=== PATIENT | female | born 1990 | race Caucasian/White ===

== ENCOUNTER 2023-03-09 09:02 | Outpatient (CLI) | payer OTHER, SELFPAY | END 2023-03-09 09:03 | disposition home or self-care (01) | PROVIDERS: PCP Family Medicine; Visit Provider Family Medicine | DX: Z00.00 Encounter for general adult medical examination without abnormal findings (principal); E03.9 Hypothyroidism, unspecified; E66.9 Obesity, unspecified; R53.83 Other fatigue; F32.9 Major depressive disorder, single episode, unspecified; Z13.6 Encounter for screening for cardiovascular disorders | CPT/HCPCS: 80053; 80061; 82607; 84439; 84443 ==

== ENCOUNTER 2023-06-14 11:49 | Outpatient (CLI) | payer OTHER, SELFPAY | END 2023-06-14 11:50 | disposition home or self-care (01) | LOC: NFLDREF 06-16 09:27 | PROVIDERS: PCP Family Medicine; Referring Provider Family Medicine; Visit Provider Family Medicine | DX: E03.9 Hypothyroidism, unspecified (principal); F32.9 Major depressive disorder, single episode, unspecified; F41.9 Anxiety disorder, unspecified; F33.1 Major depressive disorder, recurrent, moderate | CPT/HCPCS: 84443 ==

== ENCOUNTER 2025-01-27 09:15 | Emergency (ER) | payer OTHER, SELFPAY ==
--- OUTSIDE RECORDS SUMMARY | 2025-01-27 09:17 | XMS_ITS | Clinical Summary ---
Author Organization [place] [email or web address] [facility] Address [address] [place] [address] Care Team Providers Care Manager Loan Name Role Phone Diann Lopez Primary Care Provider [phone] Miya Contreras Unavailable [phone] Willy Rogel MD Unavailable Abigail Garcia RN Unavailable [phone] Allergies Active Allergy Reactions Criticality Noted Date Comments Nsaids (Non-Steroidal Anti-Inflammatory Drug) Other - Describe In Comment Field 01/14/2025 H/o bari-n-y gastric bypass. AVOID NSAIDs and aspirin due to risk of gastric and/or G-J anastomotic ulcers. If Venessa must be on short course of NSAIDs or aspirin, use enteric coated if possible and use PPI // Abigail Garcia RN, Bariatric Nurse Clinician, [facility] 01/14/2025 Penicillins 05/04/2007 Medications levothyroxine (SYNTHROID) 100 mcg tabletIndications :Hypothyroidism (acquired) Take 1 Tablet (100 mcg) by mouth before breakfast. 90 Tablet 2 09/19/19 25 Active escitalopram oxalate (LEXAPRO) 20 mg tabletIndications :Depression, recurrent Take 1 Tablet (20 mg) by mouth once daily in the morning. 90 Tablet 3 10/18/19 25 Active pedi multivit no.140-iron fum (Child Chewable Vitamn Complete) 18 mg iron chewIndications:S /P gastric bypass,Achlorhydr ia,Malabsorption due to intolerance, not elsewhere classified Chew by mouth. Acti ve mecobalamin (vitamin B12) 1,000 mcg TbDiIndications:S /P gastric bypass,Achlorhydr ia,Malabsorption due to intolerance, not elsewhere classified Place 1,000 mcg under the tongue once daily. 12/28/19 25 Active acetaminophen 500 mg tabletIndications :S/P gastric bypass Take 1-2 Tablets (500-1,000 mg) by mouth every 6 hours if needed for Pain. Max acetaminophen dose: 4000mg in 24 hrs. 30 Tablet 5 8:59 AM CDT 01/14/20 25 Active ondansetron 4 mg disintegrating tabletIndications :S/P gastric bypass Place 1 Tablet (4 mg) on the tongue every 6 hours if needed for Nausea/Vomiting. 30 Tablet 5 8:59 AM CDT 01/14/20 25 Active omeprazole 20 mg Delayed-Release capsuleIndication s:S/P gastric bypass Take 1 Capsule (20 mg) by mouth once daily before a meal. 60 Capsule 5 8:59 AM CDT 01/14/20 25 Active hyoscyamine sublingual 0.125 mg sublIndications:S /P gastric bypass Place 1 Tablet (0.125 mg) under the tongue every 4 hours if needed (for gastric or espheageal spasms.). 30 Tablet 5 8:59 AM CDT 01/14/20 25 Active enoxaparin 40 mg/0.4 mL injectionIndicati ons:Heterozygous factor V Leiden mutation (HC),S/P gastric bypass Inject 0.4 mL (40 mg) subcutaneous every 12 hours for 14 days. 11.2 mL 5 8:59 AM CDT 01/14/20 25 025 Active prochlorperazine (Compazine) 5 mg tabletIndications :S/P gastric bypass Take 1-2 Tablets (5-10 mg) by mouth every 6 hours if needed for Nausea/Vomiting. 30 Tablet 01/22/20 25 Active NebulizerIndicati ons:Bronchitis with bronchospasm Nebulizer, disposable neb kit x 4, reuseable neb kit x 1, mask x 1, filters x 1. Frequency of use: daily; Medication: albuterol Length of need: prn months 1 Each 06/29/20 23 025 Discontin ued(Other - add note to specify (E-cancel not sent)) calcium citrate-vitamin D3, 315 mg-250 units, (CITRACAL WITH VITAMIN D) 315 mg-6.25 mcg (250 unit) tab tabletIndications :Morbid obesity with BMI of 40.0-44.9, adult (HC) Take 2 Tablets by mouth two times daily with meals. Total daily dose of Calcium should be 1200mg - 1500mg 08/05/20 24 025 Discontin ued(*IP Discontin ued) multivitamin pediatric chewable tabletIndications :Morbid obesity with BMI of 40.0-44.9, adult (HC) Chew 1 Tablet by mouth once daily. 08/06/20 025 Discontin ued(*IP Discontin ued) cholecalciferol, Vitamin D3, (Vitamin D-3) 5,000 unit tab tabletIndications :Morbid obesity with BMI of 40.0-44.9, adult (HC) Take 1 Tablet (5,000 units) by mouth once daily. 08/06/20 025 Discontin ued(*IP Discontin ued) acetaminophen 500 mg tablet Take 1,000 mg by mouth every 6 hours if needed. 07/07/20 025 Discontin ued(*IP Discontin ued) calcium carbonate CHEWABLE 750 mg chewable tablet Chew 1 Tablet by mouth every 3 hours if needed. 025 Discontin ued(*IP Discontin ued) famotidine 20 mg tablet Take 20 mg by mouth 2 times daily if needed. 06/23/20 025 Discontin ued(Other - add note to specify (E-cancel not sent)) ibuprofen 200 mg tablet Take 600 mg by mouth every 6 hours if needed. 07/07/20 22 025 Discontin ued(*IP Discontin ued) vitamins-folic acid 1 mg tablet Take 1 Tablet by mouth once daily. 025 Discontin ued(Other - add note to specify (E-cancel not sent)) melatonin 10 mg cap Take 10 mg by mouth at bedtime if needed. 025 Discontin ued(*Blessing ent states no longer taking) HYDROmorphone 2 mg tabletIndications :S/P gastric bypass Take 1-2 Tablets (2-4 mg) by mouth every 4 hours if needed for Pain. 10 Tablet 5 8:59 AM CDT 01/14/20 25 025 Discontin ued(*Blessing ent states no longer taking) sennosides-docusa te (8.6-50 mg) tabletIndications :S/P gastric bypass Take 1 Tablet by mouth 2 times daily if needed for Constipation. Start day of discharge from hospital. 20 Tablet 5 8:59 AM CDT 01/14/20 25 025 Discontin ued(*Blessing ent states no longer taking) polyethylene glycoL 17 gram/scoop powderIndications :S/P gastric bypass Mix 1 scoop (17 g) in liquid then take by mouth once daily. 238 g 5 8:59 AM CDT 01/14/20 25 025 Discontin ued(*Blessing ent states no longer taking) Active Problems Patient Care Coordination No te Formatting of this note migh t be different from the original. SEE DOC FLOWSHEET-PIPELINE FOR NEW BARIATRIC COORDINATION NOTE. MARCUS RN Problem Noted Date Diagnosed Date S/P gastric bypass 01/13/2025 Overview (01/13/2025): Dr. Rogel Gastroesophageal reflux disease without esophagi tis 08/06/2024 Class 3 severe obesity with body mass index (BMI) of 40.0 to 44.9 in adult 07/19/2024 Hypothyroidism (acquired) 10/24/2023 Heterozygous factor V Leiden mutation 10/16/2023 Encounters Date Type Department Care Team Description 01/24/2025 [facility] [address] [place] [address] Lorene Melgar PA 01/15/2025 11:00 AM CDT Phone [facility] [address] [address] Karla Martins RN Weight (1st PO Bariatric RN call s/p ROBOTIC ASSISTED BARI-EN-Y GASTRIC BYPASS with Willy Rogel MD on 01/13/2025./); Telehealth (No vitals taken.) 01/15/2025 Patient Outreach [facility] [address] [place] [address] Teresa Simon RN Primary RN Care Management; Hospital F/U (LACE 10) 01/13/2025 9:55 AM CDT Anesthesia Event [facility] [address] [place] [address] Zeferino Ness MD 01/13/2025 8:30 AM CDT - 01/13/2025 11:11 AM CDT Surgery [facility] [address], [place] [address] Willy Rogel MD ROBOTIC ASSISTED BARI-EN-Y GASTRIC BYPASS 01/13/2025 6:28 AM CDT - 01/14/2025 12:39 PM CDT Hospital Encounter [facility] [address] [place] [address] Willy Rogel MD Class 3 severe obesity with body mass index (BMI) of 40.0 to 44.9 in adult (Primary Dx); Gastroesophageal reflux disease without esophagitis; Hypothyroidism (acquired); Heterozygous factor V Leiden mutation (HC); S/P gastric bypass Discharge Disposition: Home Self Care 01/13/2025 Travel 01/10/2025 Travel 01/02/2025 10:00 AM CDT [place] [facility] [address] [place] [address] Weight; Care Coordination (BNC Pre Op Education Class via [employer]/) 01/01/2025 Travel 12/31/2024 11:10 AM CDT Office Visit [facility] [address] [place] [address] Diann Lopez PA Preoperative Exam (Bariatric Procedure, 01/13/25, Megan Rogel ) 12/31/2024 Travel 12/26/2024 3:15 PM CDT Telemedicine [facility] - [facility] [address] [place] [address] Willy Rogel MD Telehealth (Today's visit is virtual, no vital signs obtained. ); Follow Up (L final clearance ) 12/09/2024 Orders Only [facility] - [facility] [address] [place] [address] Willy Rogel MD <No scans attached> 12/06/2024 Office Visit [facility] [address] [place] [address] Eric Long PsyD, LP Psychological Testing 12/03/2024 8:00 AM CDT Telemedicine [facility] [address] [place] [address] Eric Long PsyD, LP Individual Therapy; Telehealth 12/03/2024 Travel 12/02/2024 12:30 PM CDT Telemedicine [address] [address] Miya Contreras PA Telehealth (No vitals taken); Weight (f/u wt) 11/29/2024 1:00 PM CDT Telemedicine [address] [address] Medical Nutrition Therapy (SWL.4) 11/01/2024 12:30 PM [facility] Telemedicine [address] [address] from Last 3 Months Immunizations Immunization Administration Dates Next Due COVID-19 VACCINE SPIKEVAX (M ODERNA 50MCG/0.5ML) 12YO+ PFS 07/10/2023 COVID-19 vaccine (Moderna 100mcg/0.5mL) PF, MDV 12/30/2020,12/01/2020 COVID-19 vaccine (Moderna 50mcg/0.5mL) 12YO+ BIVALENT PF, MDV 06/29/2022 COVID-19 vaccine (Moderna Genaro erin 50mcg/0.25mL) PF, MDV 08/03/2021 INFLUENZA, IIV3 PF (AGE >= 6 MO) 06/07/2024 Influenza Virus, Unspecified 06/01/2017 Influenza, IIV4 07/10/2023, 2,07/09/2021,2018,06/23/2018,06/01/2017 Tdap 04/20/2022, 1,06/01/2017,2015,10/30/2013 Family History Medical History Relation Name Comments Alcoholism Father Depression Father Hypertension Father Coronary artery disease Maternal Grandfather Hyperlipidemia Maternal Grandfather Cancer-breast Maternal Grandmother Anxiety disorder Mother Clotting disorder Mother Depression Mother Other Mother PCOS COPD Paternal Grandfather Arthritis Paternal Grandmother Other Sister PCOS Relation Name Status Comments Father Maternal Grandfather Maternal Grandmother Mother Paternal Grandfather Paternal Grandmother Sister Social History Tobacco Use Types Packs/Day Years Used Date Smoking Tobacco: Never Smokeless Tobacco: Never Tobacco Cessation:Counseling Given: Not Answered Alcohol Use Standard Drinks/Week Comments Not Currently 0 (1 standard drink = 0.6 oz pur e alcohol) rarely PHQ-2 Answer Date Recorded PHQ-2 TOTAL SCORE 0 08/07/2024 Social Connections Answer Date Recorded Do you often feel lonely or isolated from those around you? 0 01/14/2025 Financial Resource Strain Answer Date R ecorded Difficulty of Paying Living Expenses 3 06/07/2024 Difficulty of Paying Living Expenses Not on file 06/07/2024 Food Insecurity Answer Date Recorded Do you worry your food will run out before you are able to buy more? 1 01/14/2025 Transportation Needs Answer Date Record ed Does lack of transportation keep you from medica l appointments? 1 01/14/2025 Does lack of transportation keep you from work, meetings or getting things that you need? 1 01/14/2025 Housing Stability Answer Date Recorded What is your housing situation today? 1 01/14/2025 Interpersonal Safety Answer Date Record ed Are you being hit, kicked, p ushed or yelled at (see row info)? No 01/14/2025 Interpersonal Safety Abuse 12 - 18 Not on file 01/14/2025 Interpersonal Safety Ambulatory Vulnerability No t on file 01/14/2025 Utilities Answer Date Recorded Do you have trouble paying f or utilities (for example, heat, electricity, water, phone)? 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 Not on file Not on file Obstetrics History Para Term AB IAB SAB Ectopic Multiple Livin g Live Births 0 0 0 0 0 0 0 0 0 3 Last Filed Vital Signs Vital Sign Reading Time Taken Comments Blood Pressure 119/57 01/14/2025 8:00 AM CDT Pulse 60 01/14/2025 8:00 AM CDT Temperature 36.7 C (98 F) 01/14/2025 8:00 AM CDT Respiratory Rate 20 01/14/2025 8:00 AM CDT Oxygen Saturation 98% 01/14/2025 8:00 AM CDT Inhaled Oxygen Concentration - - Weight 110.7 kg (244 lb) 01/21/2025 12:00 PM CDT Height 167.6 cm (5' 5.98) 01/21/2025 12:00 PM C DT Body Mass Index 39.4 01/21/2025 12:00 PM CDT Plan of Treatment Upcoming Encounters Date Type Department Care Team (Late st Contact Info) Description 02/04/2025 1:00 PM CDT Telemedicine [facility] [address] [place] [address] Claritza Lafleur, DEREK [address] [place] [address] 02/17/2025 1:00 PM CDT Phone Office Visit [facility] - [facility] [address] [address] Abigail Garcia RN [address] [address] Health Maintenance Due Date Last Done Comments COVID-19 vaccine series ( season) 2024 07/10/2023, 06/29/2022, 08/03/2021, Additional history exists Pap test for age 21-65 09/25/2024 (Verified in Care Everywhere or Patient Record), 09/27/2013, 09/02/2009 Depression screening for age 12+ 08/08/2025 08/08/2024, 08/07/2024, 08/07/2024, Additional history exists BMI (ht and wt on same day) for age 18+ 01/21/2026 01/21/2025, 01/15/2025, 12/26/2024, Additional history exists Tetanus booster 04/20/2032 04/20/2022, 05/20, 06/01/2017, Additional history exists Hepatitis C screening for age 18-79 Addressed 01/26/2021 (Verified in Care Everywhere or Patient Record) Overridden with the intention of not completing the topic HIV for age 15-65 Addressed 12/16/2021 (Ve rified in Care Everywhere or Patient Record) Overridden with the intention of not completing the topic Tdap Completed 04/20/2022, 05/20, 06/01/2017, Additional history exists Influenza Vaccine Completed 06/07/2024, , 06/23/2022, Additional history exists Pneumococcal series for age 6-49 Aged Out No longer eligible b ased on patient's age to complete this topic Procedures Procedure Name Priority Date/Time Associated Diagnosis Comments ENDOTRACHEAL TUBE Routine 01/13/2025 10: 25 AM CDT ENDOTRACHEAL TUBE Routine 01/13/2025 10: 25 AM CDT ROBOTIC ASSISTED GASTRIC BYPASS BARI-EN-Y XI Tier 3 01/13/2025 9:20 AM CDT Class 3 severe obesity with body mass index (BMI) of 40.0 to 44.9 in adult, unspecified obesity type, unspecified whether serious comorbidity present Hypothyroidism (acquired) Gastroesophageal reflux disease without esophagitis URINE Preop 01/13/2025 8:42 AM CDT GLUCOSE METER Timed 01/13/2025 8:14 AM CDT SCAN-CARDIAC STRIP 01/13/2025 12 :00 AM CDT VITAMIN D 25 (DEFICIENCY) Routine 12/31/2024 11:48 AM CDT Class 3 severe obesity with body mass index (BMI) of 40.0 to 44.9 in adult, unspecified obesity type, unspecified whether serious comorbidity present Hypothyroidism (acquired) Gastroesophageal reflux disease without esophagitis PTH,INTACT Routine 12/31/2024 11:48 AM CDT Class 3 severe obesity with body mass index (BMI) of 40.0 to 44.9 in adult, unspecified obesity type, unspecified whether serious comorbidity present Hypothyroidism (acquired) Gastroesophageal reflux disease without esophagitis HEMOGLOBIN Routine 12/31/2024 11:48 AM CDT Preoperative examination PULMONARY FUNCTION TECHNOLOGIST THIN PREP PAP SCREEN IMAGED Routine 09/27/2013 4:26 PM [facility] Screening for cervical cancer from Last 3 Months or Most Recently Relevant to Health Maintenance Results * HCHG TUBE PR1, HCHG STYLET PR1 (01/13/2025 10:25 AM CDT) Ada Bender CRNA - 01/13/2025 10:25 AM CDT Ada Bonilla, JONH 01/13/2025 10:26 AM Procedure: ETT Patient location during procedure: OR ETT Properties Mask Ventilation: easy and oral airway Final Technique: direct laryngoscopy Type: straight Location: oral Cuffed: yes Tube Size: 7.0 mm Stylet: yes Laryngoscope Blade: Mac Blade Size: 3 Cormack-Lehane Grade View: 1 Insertion Attempts: 1 Placement Verification: auscultation, end tidal CO2 and symmetrical chest wall movement Assessment: pharynx clear, atraumatic and dentition unchanged Secured at: 23 Difficulty: 0 (not difficult) us Zeferino Ness MD ANESTHESIA PX NOTE ORDERA BLES Final Result * Urine (01/13/2025 8:42 AM CDT) ,URIN E Negative Negative 01/13/2025 8:59 AM CDT [facility] Urine URINE SPECIMEN / Unknown Non-Blood / Unknown 01/13/2025 8:42 AM CDT 01/13/2025 8:52 AM CDT Willy Rogel MD URINE Final Result Performing Organization Address City/[facility]/ZIP Co de Phone Number [facility] [address] [address], [place] * GLUCOSE METER (01/13/2025 8:14 AM CDT) GLUCOSE METER 81 65 - 100 mg/dL 01/14/2025 7:01 AM CDT [facility] Blood BLOOD SPECIMEN / Unknown 01/13/2025 8:14 AM CDT 01/14/2025 7:01 AM CDT Willy Rogel MD CHEMISTRY Final Result Performing Organization Address City/[facility] Co de Phone Number [facility] [address] [address], [place] * SCAN-CARDIAC STRIP (01/13/2025 12:00 AM CDT) Narrative 01/13/2025 12:00 AM CDT Ordered by an unspecified provider. Other Clinical Staff OTHER Final Resul t * VITAMIN D 25 (DEFICIENCY) (12/31/2024 11:48 AM CDT) VITAMIN D,25-OH,TOTAL,IA 32 30 - 100 ng/mL [facility] Comment: Vitamin D Status 25-OH Vitamin D: Deficiency: <20 ng/mL Insufficiency: 20 - 29 ng/mL Optimal: > or = 30 ng/mL For 25-OH Vitamin D testing on patients on D2-supplementation and patients for whom quantitation of D2 and D3 fractions is required, the QuestAssureD(TM) 25-OH VIT D, (D2,D3), LC/MS/MS is recommended: order code 65271 (patients >2yrs). See Note 1 Note 1 For additional information, please refer to http://education.[employer]/faq/PSR104 (This link is being provided for informational/ educational purposes only.) Blood BLOOD SPECIMEN / Unknown 12/31/2024 11:48 AM CDT 12/31/2024 11:48 AM CDT Wlily Rogel MD SEND OUTS Final Result [facility] [address] [place] [address], [facility] [address] [place] [address] * HEMOGLOBIN (12/31/2024 11:48 AM CDT) HEMOGLOBIN 14.5 11.7 - 15.5 g/dL [facility] Blood BLOOD SPECIMEN / Unknown 12/31/2024 11:48 AM CDT 12/31/2024 11:48 AM CDT Diann MAI HEMATOLOGY Final Res ult [facility] [address] [place] [address], [facility] [address] [place] [address] * PTH,INTACT (12/31/2024 11:48 AM CDT) PARATHYROID HORMONE, INTACT 33 16 - 77 pg/mL [facility] Comment: Interpretive Guide Intact PTH Calcium ------- Normal Parathyroid Normal Normal Hypoparathyroidism Low or Low Normal Low Hyperparathyroidism Primary Normal or High High Secondary High Normal or Low Tertiary High High Non-Parathyroid Hypercalcemia Low or Low Normal High CALCIUM 10.0 8.6 - 10.2 mg/dL [facility] Blood BLOOD SPECIMEN / Unknown 12/31/2024 11:48 AM CDT 12/31/2024 11:48 AM CDT Willy Rogel MD SEND OUTS Final Result [facility] [address] [place] [address], [facility] [address] [place] [address] * PULMONARY FUNCTION TECHNOLOGIST THIN PREP PAP SCREEN IMAGED (09/27/2013 4:26 PM [facility]) CYTOLOGY CYTOPATHOLOGY REPORT [facility] Status: Final Status [id number] CLINICAL INFORMATION Last Date of LMP :08/07/2013 Last Pap Date :09/02/2009 Last Pap Result :NIL ABN [place]/Bx Past 5 YRS :None Hormone Usage :BCP/OCP/Patch/Rin g Menstrual Status :Regular Periods [place]/Bx done today :No Additional Information :None given HPV Request :HPV if ASCUS SPECIMEN SOURCE :Cervical/vaginal ThinPrep Vial, screening SPECIMEN ADEQUACY :Satisfactory for evaluation No endocervical component seen. INTERPRETATION/RES ULT Negative for intraepithelial lesion or malignancy (NIL) Cytology 1st Screener :[email or web address] Signed by :[email or web address] This specimen was screened by the FDA approved ThinPrep Imaging System and manually reviewed. NOTE: The Pap test is a screening technique, not a diagnostic procedure. It is used primarily to screen for squamous cancers and precursor lesions. Published studies have shown that it is subject to both false negative and false positive results. The pap test should not be used as the sole means to diagnose or exclude pre-malignant and malignant lesions. COLLECTED:09/27/13 ACCESSIONED: 09/29/13 SIGNED: 10/08/13 [facility] PAP [place] CODE NIL [facility] Tissue specimen (specimen) (Cervical/Vagina l) 09/27/2013 4:26 PM [facility] 09/27/2013 4:21 PM [facility] us Rachel MAI PATHOLOGY/CYTOLOGY Elena bishop Result [facility] INTERNAL ZIP [id number] [address] [place] [address] from Last 3 Months or Most Recently Relevant to Health Maintenance Insurance [facility] Advance Directives * Full Code (Latest Code Status on File) Date Activated Date Inactivated Comments 01/13/2025 7:27 AM 01/14/2025 2:49 PM Question Answer Comments Code Status Discussion: Not Discussed Care Teams Manager Loan Relationship Specialty Start Date End Date Diann Lopez PA [address] [place] [address] PCP - General Physician Pharm Spec 07/10/23 Miya Contreras PA [address] [place] [address] Physician Pharm Spec 07/16/24 Willy Rogel MD [address] [place] [address] Consulting Physician Surgery - General 08/06/24 Abigail Garcia RN [address] [place] [address] [employer] Splicer Registered Nurse 08/06/24
[2025-01-27 09:22] VITALS: BP 125/86; PULSE 69; RESP 16; TEMP 36.3; O2SAT 98; BMI 37.9
[2025-01-27] MEDS: LACTATED RINGERS 1000 ML 1,000 ML IV ×2 (09:48→10:49)
[2025-01-27 10:03] LABS: Basophils Absolute Auto 0.03 K/uL (0.00-0.30); Basophils Percent Auto 0.5 % (0.0-3.0); Eosinophils Absolute Auto 0.19 K/uL (0.00-0.50); Eosinophils Percent Auto 3.3 % (0.0-7.0); Hematocrit 41.9 % (33.0-51.0); Hemoglobin* 14.4 gm/dL (12.0-16.0); Immature Granulocytes Abs Auto 0.01 K/uL (0.00-0.30); Immature Granulocytes Pct Auto 0.2 %; Lymphocytes Absolute Auto 1.31 K/uL (0.90-2.90); Lymphocytes Percent Auto 22.5 % (20-44); Mean Corpuscular HGB Conc 34 gm/dL (32-36); Mean Corpuscular Hemoglobin 30 pg (26-34); Mean Corpuscular Volume 87 fL (80-100); Neutrophils Absolute Auto 3.69 K/uL (1.7-7.0); Neutrophils Percent Auto 63.5 % (42.0-72.0); Platelet Count* 319 K/uL (140-440); RDW Coefficient of Variation % 12.6 % (11.5-15.5); Red Blood Count 4.82 m/uL (4.00-5.20); White Blood Count* 5.81 K/uL (4.50-11.00)
[2025-01-27 10:05] LABS: Slide Review Reflex No
[2025-01-27 10:15] LABS: Chloride* 98 mmol/L (96-114); Sodium* 138 mmol/L (135-149)
[2025-01-27 10:18] LABS: Anion Gap 13 mEq/L (7-15); Blood Urea Nitrogen* 10 mg/dL (5-24); Calcium* 9.3 mg/dL (8.4-10.6); Carbon Dioxide* 27 mmol/L (20-32); Creatinine* 0.7 mg/dL (0.5-1.5); Est. Creatinine Clearance* 108.04; Estimated Glomerular Filt Rate 115 ml/min; Glucose* 100 mg/dL (60-115)
[2025-01-27 10:19] LABS: Magnesium* 1.7 mg/dL (1.5-2.6)
--- OUTSIDE RECORDS SUMMARY | 2025-01-27 10:25 | XMS_ITS | Clinical Summary ---
Author Organization [facility]ly [facility] Address [address] [place] [id number] Care Team Providers Care Electronic Systems Security Assessment Name Role Phone Diann Lopez Primary Care Provider [phone] Miya Contreras Unavailable [phone] Willy Rogel MD Unavailable Abigail Garcia RN Unavailable [phone] Allergies Active Allergy Reactions Criticality Noted Date Comments Nsaids (Non-Steroidal Anti-Inflammatory Drug) Other - Describe In Comment Field 01/14/2025 H/o bari-n-y gastric bypass. AVOID NSAIDs and aspirin due to risk of gastric and/or G-J anastomotic ulcers. If Venessa must be on short course of NSAIDs or aspirin, use enteric coated if possible and use PPI // Abigail Garcia RN, Bariatric Nurse Clinician, [facility] 01/14/2025 Penicillins 05/04/2007 Medications levothyroxine [...] Type Department Care Team Description [facility] [address] [place] [address] Lorene Melgar PA 01/15/2025 11:00 AM CDT Phone [facility] [address] [address] Karla Martins RN Weight (1st PO Bariatric RN call s/p ROBOTIC ASSISTED BARI-EN-Y GASTRIC BYPASS with Willy Rogel MD on 01/13/2025./); Telehealth (No vitals taken.) 01/15/2025 Patient Outreach [facility] [address] [place] [address] Teresa Simon RN Primary RN Care Management; Hospital F/U (LACE 10) 01/13/2025 9:55 AM CDT Anesthesia Event [facility] [address] [place] [address] Zeferino Ness MD 01/13/2025 8:30 AM CDT - 01/13/2025 11:11 AM CDT Surgery [facility] [address], [place] [address] Willy Rogel MD ROBOTIC ASSISTED BARI-EN-Y GASTRIC BYPASS 01/13/2025 6:28 AM CDT - 01/14/2025 12:39 PM CDT Hospital Encounter [facility] [address] [place] [address] Willy Rogel MD Class 3 severe obesity with body mass index (BMI) of 40.0 to 44.9 in adult (Primary Dx); Gastroesophageal reflux disease without esophagitis; Hypothyroidism (acquired); Heterozygous factor V Leiden mutation (HC); S/P gastric bypass Discharge Disposition: Home Self Care 01/13/2025 Travel 01/10/2025 Travel 01/02/2025 10:00 AM CDT Office [place] [facility] [address] [place] [address] Weight; Care Coordination (BNC Pre Op Education Class via [employer]/) 01/01/2025 Travel 12/31/2024 11:10 AM CDT Office Visit [facility] [address] [place] [address] Diann Lopez PA Preoperative Exam (Bariatric Procedure, 01/13/25, Megan Rogel ) 12/31/2024 Travel 12/26/2024 3:15 PM CDT Telemedicine [facility] - [facility] [address] [place] [address] Willy Rogel MD Telehealth (Today's visit is virtual, no vital signs obtained. ); Follow Up (L final clearance ) 12/09/2024 Orders Only [facility] - [facility] [address] [place] [address] Willy Rogel MD <No scans attached> 12/06/2024 Office Visit [facility] [address] [place] [address] Eric Long PsyD, LP Psychological Testing 12/03/2024 8:00 AM CDT Telemedicine [facility] [address] [place] [address] Eric Long PsyD, LP Individual Therapy; Telehealth 12/03/2024 Travel 12/02/2024 12:30 PM CDT Telemedicine [address] [address] Miya Contreras PA Telehealth (No vitals taken); Weight (f/u wt) 11/29/2024 1:00 PM CDT Telemedicine [address] [address] Medical Nutrition Therapy (SWL.4) 11/01/2024 12:30 PM CSM CONSULTANT Telemedicine [address] [address] from Last 3 Months [...] on file Legal Sex Female 6:29 AM CSM CONSULTANT Gender Identity Not on file Sexual Orientation Not on file 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 Not on file Not [...] Info) Description 02/04/2025 1:00 PM CDT Telemedicine [facility] [address] [place] [address] Claritza Lafleur, DEREK [address] [place] [address] 02/17/2025 1:00 PM CDT Phone Office Visit [facility] - [facility] [address] [address] Abigail Garcia RN [address] [address] Health Maintenance Due Date Last Done Comments [...] Routine 12/31/2024 11:48 AM CDT Preoperative examination INSURANCE SALES ASSOCIATE THIN PREP PAP SCREEN IMAGED Routine 09/27/2013 4:26 PM CSM CONSULTANT Screening for cervical cancer from Last 3 [...] E Negative Negative 01/13/2025 8:59 AM CDT [facility] Urine URINE SPECIMEN / Unknown Non-Blood / Unknown 01/13/2025 8:42 AM CDT 01/13/2025 8:52 AM CDT Willy Rogel MD URINE Final Result Performing Organization Address City/[facility]/ZIP Co de Phone Number [facility] [address] [address], [place] * GLUCOSE METER (01/13/2025 8:14 AM CDT) GLUCOSE METER 81 65 - 100 mg/dL 01/14/2025 7:01 AM CDT [facility] Blood BLOOD SPECIMEN / Unknown 01/13/2025 8:14 AM CDT 01/14/2025 7:01 AM CDT Willy Rogel MD CHEMISTRY Final Result Performing Organization Address City/[facility] Co de Phone Number [facility] [address] [address], [place] * SCAN-CARDIAC STRIP (01/13/2025 12:00 AM CDT) Narrative 01/13/2025 12:00 AM CDT Ordered by an unspecified provider. Other Clinical Staff OTHER Final Resul t * VITAMIN D 25 (DEFICIENCY) (12/31/2024 11:48 AM CDT) VITAMIN D,25-OH,TOTAL,IA 32 30 - 100 ng/mL [employer] Comment: Vitamin D Status 25-OH Vitamin D: Deficiency: <20 ng/mL Insufficiency: 20 - 29 ng/mL Optimal: > or = 30 ng/mL For 25-OH Vitamin D testing on patients on D2-supplementation and patients for whom quantitation of D2 and D3 fractions is required, the QuestAssureD(TM) 25-OH VIT D, (D2,D3), LC/MS/MS is recommended: order code 15924 (patients >2yrs). See Note 1 Note 1 For additional information, please refer to http://education.[employer]/faq/KOJ883 (This link is being provided for informational/ educational purposes only.) Blood BLOOD SPECIMEN / Unknown 12/31/2024 11:48 AM CDT 12/31/2024 11:48 AM CDT Willy Rogel MD SEND OUTS Final Result [facility] [address] [place] [address], [facility] [address] [place] [address] * HEMOGLOBIN (12/31/2024 11:48 AM CDT) HEMOGLOBIN 14.5 11.7 - 15.5 g/dL [employer] [facility] Blood BLOOD SPECIMEN / Unknown 12/31/2024 11:48 AM CDT 12/31/2024 11:48 AM CDT Diann MAI HEMATOLOGY Final Res ult [employer] [employer] [address] [place] [address], [facility] [address] [place] [address] * PTH,INTACT (12/31/2024 11:48 AM CDT) PARATHYROID HORMONE, INTACT 33 16 - 77 pg/mL [employer] [facility] Comment: Interpretive Guide Intact PTH Calcium ------- Normal Parathyroid Normal Normal Hypoparathyroidism Low or Low Normal Low Hyperparathyroidism Primary Normal or High High Secondary High Normal or Low Tertiary High High Non-Parathyroid Hypercalcemia Low or Low Normal High CALCIUM 10.0 8.6 - 10.2 mg/dL [employer] Blood BLOOD SPECIMEN / Unknown 12/31/2024 11:48 AM CDT 12/31/2024 11:48 AM CDT Willy Rogel MD SEND OUTS Final Result [facility] [address] [place] [address], [facility] [address] [place] [address] * INSURANCE SALES ASSOCIATE THIN PREP PAP SCREEN IMAGED (09/27/2013 4:26 PM CSM CONSULTANT) CYTOLOGY CYTOPATHOLOGY REPORT [facility] Status: Final Status [id number] CLINICAL INFORMATION Last Date of LMP :08/07/2013 Last Pap Date :09/02/2009 Last Pap Result :NIL ABN Avon/Bx Past 5 YRS :None Hormone Usage :BCP/OCP/Patch/Rin g Menstrual Status :Regular Periods [place]on/Bx done today :No Additional Information :None given [...] malignant lesions. COLLECTED:09/27/13 ACCESSIONED: 09/29/13 SIGNED: 10/08/13 [facility] PAP [place] CODE NIL [facility] Tissue specimen (specimen) (Cervical/Vagina l) 09/27/2013 4:26 PM CSM CONSULTANT 09/27/2013 4:21 PM CSM CONSULTANT us Rachel MAI PATHOLOGY/CYTOLOGY Elena bishop Result [facility] INTERNAL ZIP [address] [address] [place] [address] from Last 3 Months or Most Recently Relevant to Health Maintenance Insurance [facility] Advance Directives * Full Code (Latest Code Status on File) Date Activated Date Inactivated Comments 01/13/2025 7:27 AM 01/14/2025 2:49 PM Question Answer Comments Code Status Discussion: Not Discussed Care Teams Electronic Systems Security Assessment Relationship Specialty Start Date End Date Diann Lopez PA [address] [place] [address] PCP - General Physician Concrete Mason 07/10/23 Miya Contreras PA [address] [place] [address] Physician [employer] Mason 07/16/24 Willy Rogel MD [address] [place] [address] Consulting Physician Surgery - General 08/06/24 Abigail Garcia RN [address] [place] [address] Garden Worker Registered Nurse 08/06/24
--- NOTE | 2025-01-27 10:27 | ED_ITS ---
HPI - General Adult General Date Seen: 01/27/25 Chief complaint: Unspecified Complaint, Adult Stated complaint: Feels Dehydrated Time Seen by Provider: 01/27/25 09:32 Source: patient Mode of arrival: ambulatory Limitations: no limitations History of Present Illness HPI narrative: Patient is a 34-year-old female sent in by her physician's office for dehydration. Two weeks ago she had gastric bypass surgery. She is post be drinking 64 oz of fluid a day but has only been able to drink about 30 oz a day. She is on a full liquid diet currently so this 30 oz includes all oral intake. She has been having associated nausea but the nausea medicine provided by her provider has helped. She denies any fevers, chills, chest pain, shortness of breath, lightheadedness, dizziness, weakness. This states she is feeling very fatigued and has a dry mouth. Due to this she called the triage line of her surgeon's office and was told to come here. She states she otherwise is doing well. Has not noticed any issues with her surgical sites. No other concerns noted Related Data Home Medications ?Medication ?Instructions ?Recorded ?Confirmed escitalopram oxalate 10 mg tablet 10 mg PO DAILY 01/25/24 01/27/25 prochlorperazine maleate 5 mg 5 - 10 mg PO Q6H PRN 01/27/25 01/27/25 tablet nausea/vomiting Previous Rx's ?Medication ?Instructions ?Recorded levothyroxine 88 mcg tablet 88 mcg PO QDAY #60 tabs 03/10/23 albuterol sulfate 90 mcg/actuation 2 inh inhalation Q6-8H PRN 07/10/23 aerosol inhaler shortness of breath or wheezing, cough #6.7 grams Allergies Allergy/AdvReac Type Severity Reaction Status Date / Time Penicillins Allergy Intermediate Rash Verified 01/25/24 09:29 Review of Systems Status of ROS: Reports: 10 or more systems reviewed and unremarkable except as noted in History and below [facility] Medical History Ocular migraine ?G43.109 - Migraine with aura, not intractable, without status migrainosus (ICD-10) Heterozygous factor V Leiden mutation ?D68.51 - Activated protein C resistance (ICD-10) History of gestational hypertension ?Z87.59 - Personal history of other complications of , childbirth and the puerperium (ICD-10) PCOS (polycystic ovarian syndrome) ?E28.2 - Polycystic ovarian syndrome (ICD-10) History of DVT (deep vein thrombosis) (12/2021) ?Z86.718 - Personal history of other venous thrombosis and embolism (ICD-10) Obesity (BMI 30-39.9) ?E66.9 - Obesity, unspecified (ICD-10) Anxiety (03/09/23) ?F41.9 - Anxiety disorder, unspecified (ICD-10) Major depression (03/09/23) ?F32.9 - Major depressive disorder, single episode, unspecified (ICD-10) Surgical History History of cholecystectomy (03/08/18) ?Z90.49 - Acquired absence of other specified parts of digestive tract (ICD- 10) History of tubal ligation (07/05/22) ?Z98.51 - Tubal ligation status (ICD-10) History of 3 sections ?Z98.891 - History of uterine scar from previous surgery (ICD-10) Family History Maternal Grandmother Uterine cancer, Onset Age: 45 Breast cancer Father Depression High blood pressure DVT (deep venous thrombosis) Mother Depression Migraines Sister PCOS (polycystic ovarian syndrome) Maternal Grandfather Coronary artery disease Myocardial infarction Social History 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 Moderately dry mucous membranes. Neck: Symmetric, trachea midline, No thyromegaly. CVS: RRR, No murmurs or gallops. Peripheral pulses 2+ and equal in all extremities RESP: Unlabored respiratory effort. Clear to auscultation bilaterally. GI: Nontender/Nondistended, No rebound or guarding. MSK:Extremities w/o deformity, Normal Active ROM Skin: Warm, Dry. No rashes or lesions. Well-healing surgical sites on abdomen Neuro: Normal Muscle tone, No focal neurological deficits. Psych: Awake, Alert, & Oriented x3. Appropriate mood and affect. Const: Vital Signs, click to edit/add: Vital Signs - 24 hr 01/27/25 09:22 Temperature 97.4 F L Pulse Rate [Pulse Oximeter] 69 Respiratory Rate 16 Blood Pressure [Ri t Upper Arm] 125/86 Pulse Oximetry 98 Oxygen Delivery Me thod Room Air Course Vital Signs Vital signs: Initial Vital Signs Temperature 97.4 F L 01/27/25 09:22 Temperature Source Temporal Artery Scan 01/27/25 09:22 Pulse Rate 69 01/27/25 09:22 Respiratory Rate 16 01/27/25 09:22 Blood Pressure 125/86 01/27/25 09:22 Blood Pressure Mean 99 01/27/25 09:22 Blood Pressure Position Sitting 01/27/25 09:22 Pulse Oximetry 98 01/27/25 09:22 Oxygen Delivery Method Room Air 01/27/25 09:22 Vital Signs Temperature 97.4 F L 01/27/25 09:22 Pulse Rate 69 01/27/25 09:22 Respiratory Rate 16 01/27/25 09:22 Blood Pressure 125/86 01/27/25 09:22 Pulse Oximetry 98 01/27/25 09:22 Oxygen Delivery Method Room Air 01/27/25 09:22 Temperature 97.4 F L 01/27/25 09:22 Pulse Rate 69 01/27/25 09:22 Respiratory Rate 16 01/27/25 09:22 Blood Pressure 125/86 01/27/25 09:22 Pulse Oximetry 98 01/27/25 09:22 Oxygen Delivery Method Room Air 01/27/25 09:22 Medications Administered Medications: Discontinued Medications Generic Name Dose Route Start Last Admin Trade Name Freq PRN Reason Stop Dose Admin Lactated Ringer's 1,000 mls @ 1,000 mls/hr 01/27/25 09:37 01/27/25 10:45 Lactated Ringers 1000 Ml IV 01/27/25 10:36 Infused .Q1H ONE Infusion Potassium Bicarbonate 50 meq 01/27/25 10:34 01/27/25 10:44 Potassium Bicarb 25 Meq Effervescent Tab PO 01/27/25 10:35 50 meq ONCE ONE Administration Medical Decision Making MDM Narrative Medical decision making narrative: Patient is a 34-year-old female presenting for to the emergency department for concerns of dehydration. She has been again less than half of her required full liquid diet due to nausea. Was told to come in for dehydration. Considering she is not getting any electrolytes either I will check a CBC, BMP, magnesium. Also give her 2 L of LR. Lab work returns with a potassium of 2.8 but no other concerning abnormalities. Will provide her 50 mEq of oral potassium. She is agreeable to this plan. She is feeling well otherwise and will be discharged. Lab Data Labs: Lab Results 01/27/25 Range/Units 09:50 WBC 5.81 (4.50-11.00) K/uL RBC 4.82 (4.00-5.20) m/uL Hgb 14.4 (12.0-16.0) gm/dL Hct 41.9 (33.0-51.0) % MCV 87 (80-100) fL MCH 30 (26-34) pg MCHC 34 (32-36) gm/dL RDW Coeff of Anya 12.6 (11.5-15.5) % Plt Count 319 (140-440) K/uL Neut % (Auto) 63.5 (42.0-72.0) % Lymph % (Auto) 22.5 (20-44) % [place] % (Auto) 10.0 (0.0-11.0) % Eos % (Auto) 3.3 (0.0-7.0) % Baso % (Auto) 0.5 (0.0-3.0) % Neut # (Auto) 3.69 (1.7-7.0) K/uL Lymph # (Auto) 1.31 (0.90-2.90) K/uL [place] # (Auto) 0.60 (0.00-0.90) K/UL Eos # (Auto) 0.19 (0.00-0.50) K/uL Baso # (Auto) 0.03 (0.00-0.30) K/uL Abs Immat Gran (auto) 0.01 (0.00-0.30) K/uL Imm/Tot Granulo (auto) 0.2 % Sodium 138 (135-149) mmol/L Potassium 2.8 L* (3.6-5.1) mmol/L Chloride 98 (96-114) mmol/L Carbon Dioxide 27 (20-32) mmol/L Anion Gap 13 (7-15) mEq/L BUN 10 (5-24) mg/dL Creatinine 0.7 (0.5-1.5) mg/dL Estimated Creat Clear 108.04 Estimated GFR 115 ml/min Glucose 100 (60-115) mg/dL Calcium 9.3 (8.4-10.6) mg/dL Magnesium 1.7 (1.5-2.6) mg/dL Discharge Plan Discharge Clinical Impression: Acute dehydration, Acute hypokalemia Patient Disposition: Home, Self-Care Condition: Stable Instructions: Hypokalemia (ED) Additional Instructions: I believe your potassium is low due to your decreased oral intake. I recommend following up with your surgical team to see if they want you to start on a potassium supplement. Return to emergency department for new or worsening symptoms. Prescriptions: No Action escitalopram oxalate 10 mg tablet 10 mg PO DAILY prochlorperazine maleate 5 mg tablet 5 - 10 mg PO Q6H PRN (Reason: nausea/vomiting) levothyroxine 88 mcg tablet 88 mcg PO QDAY Qty: 60 0RF albuterol sulfate 90 mcg/actuation HFA aerosol inhaler 2 inh inhalation Q6-8H PRN (Reason: shortness of breath or wheezing, cough) Qty: 6.7 1RF Follow Up/Referrals: Valerie Boone MD [Primary Care Provider] - Stand Alone Forms: General [employer] Info Instructions
[2025-01-27 10:34] LABS: Potassium* 2.8 mmol/L (3.6-5.1)
[2025-01-27] MEDS: POTASSIUM BICARB 25 MEQ EFFERVESCENT TAB 50 MEQ PO (10:44)
== END 2025-01-27 11:44 | disposition home or self-care (01) ==
PROVIDERS: Emergency Provider Student in an Organized Health Care Education/Training Program; PCP Family Medicine
DX: E86.0 Dehydration (principal); E87.6 Hypokalemia
CPT/HCPCS: 36415; 80048; 83735; 85025; 99283; 99284; A9270; J7120

== ENCOUNTER 2025-02-14 13:30 | Outpatient (RCR) | payer OTHER, SELFPAY ==
[2025-01-29] MEDS: SODIUM CHLORIDE IV ×2 (13:36→14:36)
[2025-01-29 16:06] VITALS: BP 120/78; PULSE 57; RESP 16; TEMP 36.4; O2SAT 99
[2025-01-31 13:37] VITALS: BP 115/74; PULSE 50; RESP 16; TEMP 36.4; O2SAT 99
[2025-01-31] MEDS: SODIUM CHLORIDE IV (14:01)
[2025-02-03 13:47] VITALS: BP 123/81; PULSE 53; RESP 18; TEMP 36.6; O2SAT 100
[2025-02-03] MEDS: SODIUM CHLORIDE IV (14:06)
[2025-02-05 13:46] VITALS: BP 111/78; PULSE 51; RESP 14; TEMP 36.2; O2SAT 100
[2025-02-05] MEDS: SODIUM CHLORIDE IV (14:01)
--- NOTE | 2025-02-05 14:30 | ONC.NURNOTE ---
Pt updates her oral intake is up to ~ 50 oz/day. She is also beginning pureed food and following with a police lieutenant precinct.
[2025-02-07 10:45] VITALS: BP 117/79; PULSE 58; RESP 16; TEMP 36.7; O2SAT 99
[2025-02-07] MEDS: SODIUM CHLORIDE IV (11:17)
[2025-02-11 13:45] VITALS: BP 115/76; PULSE 55; RESP 15; TEMP 36.1; O2SAT 99
[2025-02-11] MEDS: SODIUM CHLORIDE IV (14:10)
[2025-02-14] MEDS: SODIUM CHLORIDE IV (13:30)
[2025-02-14 13:31] VITALS: BP 116/74; PULSE 59; RESP 17; TEMP 36.4; O2SAT 96
--- NOTE | 2025-02-14 15:48 | ONC.NURNOTE ---
Pt doing better at home with liquid intake. Pt does not feel she needs to return to [facility] for IV fluids. Order is for as needed.
== END 2025-07-28 23:59 | disposition home or self-care (01) ==
LOC: CCIC 13:30
PROVIDERS: PCP Student in an Organized Health Care Education/Training Program; Referring Provider Family Medicine; Visit Provider Clinical Nurse Specialist
DX: E86.0 Dehydration (principal)
CPT/HCPCS: 96360; 96361; J7030

== ENCOUNTER 2025-03-07 12:29 | Emergency (ER) | payer OTHER, SELFPAY ==
--- OUTSIDE RECORDS SUMMARY | 2025-03-07 12:31 | XMS_ITS | Clinical Summary ---
Author Organization [employer] [facility] Address [address] [place] [address] Care Team Providers Care Motion Picture Critic Name Role Phone Diann Lopez Primary Care Provider [phone] Miya Contreras Unavailable Willy Rogel MD Unavailable Abigail Garcia RN Unavailable [phone] Allergies Active Allergy Reactions Criticality Noted Date Comments Nsaids (Non-Steroidal Anti-Inflammatory Drug) Other - Describe In Comment Field 01/14/2025 H/o bari-n-y gastric bypass. AVOID NSAIDs and aspirin due to risk of gastric and/or G-J anastomotic ulcers. If Venessa must be on short course of NSAIDs or aspirin, use enteric coated if possible and use PPI // Abigail Garcia RN, Bariatric Nurse Clinician, [facility] 01/14/2025 Penicillins 05/04/2007 Medications levothyroxine (SYNTHROID) 100 mcg tabletIndications: Hypothyroidism (acquired) Take 1 Tablet (100 mcg) by mouth before breakfast. 90 Tablet 2 09/19/19 25 Active escitalopram oxalate (LEXAPRO) 20 mg tabletIndications: Depression, recurrent Take 1 Tablet (20 mg) by mouth once daily in the morning. 90 Tablet 3 10/18/19 25 Active pedi multivit no.140-iron fum (Child Chewable Vitamn Complete) 18 mg iron chewIndications:S/ P gastric bypass,Achlorhydri a,Malabsorption due to intolerance, not elsewhere classified Chew by mouth. Acti ve mecobalamin (vitamin B12) 1,000 mcg TbDiIndications:S/ P gastric bypass,Achlorhydri a,Malabsorption due to intolerance, not elsewhere classified Place 1,000 mcg under the tongue once daily. 12/28/19 25 Active acetaminophen 500 mg tabletIndications: S/P gastric bypass Take 1-2 Tablets (500-1,000 mg) by mouth every 6 hours if needed for Pain. Max acetaminophen dose: 4000mg in 24 hrs. 30 Tablet 5 8:59 AM CDT 01/14/20 25 Active ondansetron 4 mg disintegrating tabletIndications: S/P gastric bypass Place 1 Tablet (4 mg) on the tongue every 6 hours if needed for Nausea/Vomiting. 30 Tablet 5 8:59 AM CDT 01/14/20 25 Active omeprazole 20 mg Delayed-Release capsuleIndications :S/P gastric bypass Take 1 Capsule (20 mg) by mouth once daily before a meal. 60 Capsule 5 8:59 AM CDT 01/14/20 25 Active hyoscyamine sublingual 0.125 mg sublIndications:S/ P gastric bypass Place 1 Tablet (0.125 mg) under the tongue every 4 hours if needed (for gastric or espheageal spasms.). 30 Tablet 5 8:59 AM CDT 01/14/20 25 Active prochlorperazine (Compazine) 5 mg tabletIndications: S/P gastric bypass Take 1-2 Tablets (5-10 mg) by mouth every 6 hours if needed for Nausea/Vomiting. 30 Tablet 01/22/20 25 Active Active Problems Patient Care Coordination No te Formatting of this note migh t be different from the original. SEE DOC FLOWSHEET-PIPELINE FOR NEW BARIATRIC COORDINATION NOTE. MARCUS, RN Problem Noted Date Diagnosed Date Dehydration 01/27/2025 S/P gastric bypass 01/13/2025 Overview (01/13/2025): Dr. Rogel Gastroesophageal reflux disease without esophagi tis 08/06/2024 Class 3 severe obesity with body mass index (BMI) of 40.0 to 44.9 in adult 07/19/2024 Hypothyroidism (acquired) 10/24/2023 Heterozygous factor V Leiden mutation 10/16/2023 Encounters Date Type Department Care Team Description 02/20/2025 Telephone [facility] - [facility] [address] [address] Willy Rogel MD Infusion Therapy; Questions; Weight 02/17/2025 1:00 PM CDT Phone Office Visit [facility] [address] [address] Abigail Garcia, RN Education (5 week) 02/04/2025 1:00 PM CDT Telemedicine [facility] [address] [place] [address] Claritza Lafleur, DEREK Medical Nutrition Therapy (SWL.3wk) 01/28/2025 Telephone [facility] [address] [place] [address] Diann Hill, SAMANTHA Appointment 01/28/2025 Telephone [facility] - [place] [id number] [address] Lorene Melgar PA Infusion Therapy 01/28/2025 Orders Only [facility] - [place] [address] [address] Lorene Melgar PA <No scans attached> 01/27/2025 Orders Only [facility] [address] [place] [address] Lorene Melgar PA <No scans attached> 01/24/2025 Telephone [facility] - [facility] [address] [address] Lorene Melgar PA Weight; Dehydration 01/15/2025 11:00 AM CDT Phone Office Visit [facility] - [place] [id number] [address] Karla Martins, RN Weight (1st PO Bariatric RN call s/p ROBOTIC ASSISTED BARI-EN-Y GASTRIC BYPASS with Willy Rogel MD on 01/13/2025./); Telehealth (No vitals taken.) 01/15/2025 Patient Outreach [facility] [address] [place] [address] Teresa Simon, RN Primary RN Care Management; Hospital F/U (LACE 10) 01/13/2025 9:55 AM CDT Anesthesia Event [facility] [address] [place] [address] Zeferino Ness MD 01/13/2025 8:30 AM CDT - 01/13/2025 11:11 AM CDT Surgery [facility] [address] [address] Willy Rogel MD ROBOTIC ASSISTED BARI-EN-Y GASTRIC BYPASS 01/13/2025 6:28 AM CDT - 01/14/2025 12:39 PM CDT Hospital Encounter [facility] [address] [place] [address] Willy Rogel MD Class 3 severe obesity with body mass index (BMI) of 40.0 to 44.9 in adult (HC) (Primary Dx); Gastroesophageal reflux disease without esophagitis; Hypothyroidism (acquired); Heterozygous factor V Leiden mutation (HC); S/P gastric bypass Discharge Disposition: Home Self Care 01/13/2025 Travel 01/10/2025 Travel 01/02/2025 10:00 AM CDT [place] [facility] [address] [place] [address] Weight; Care Coordination (BNC Pre Op Education Class via [employer]/) 01/01/2025 Travel 12/31/2024 11:10 AM CDT Office Visit [facility] [address] [place] [address] Diann Lopez PA Preoperative Exam (Bariatric Procedure, 01/13/25, Megan Rogel ) 12/31/2024 Travel 12/26/2024 3:15 PM CDT Telemedicine [facility] - [facility] [address] [place] [address] Willy Rogel MD Telehealth (Today's visit is virtual, no vital signs obtained. ); Follow Up ([facility] final clearance ) 12/09/2024 Orders Only [facility] - [facility] [address] [place] [address] Willy Rogel MD <No scans attached> 12/06/2024 Office Visit [facility] [address] [place] [address] Eric Long PsyD, LP Psychological Testing from Last 3 Months Immunizations Immunization Administration [...] on file Legal Sex Female 6:29 AM PIGGYBACK CLERK Gender Identity Not on file Sexual Orientation Not on file Occupation Industry Job Start Date Job End Date [employer] Not on file Not on file Not [...] CDT Inhaled Oxygen Concentration - - Weight 112.5 kg (248 lb) 02/04/2025 1:00 PM CDT Height 167.6 cm (5' 5.98) 02/04/2025 1:00 PM CD T Body Mass Index 40.05 02/04/2025 1:00 PM CDT Plan of Treatment Upcoming Encounters Date Type Department Care Team (Late st Contact Info) Description 04/15/2025 1:30 PM CDT Telemedicine [facility] [address] [place] [address] Claritza Lafleur, DEREK [address] [facility], [place] [phone] 05/16/2025 10:30 AM CDT Telemedicine [facility] [address] [place] [phone] Miya Contreras PA [address] [facility], [place] [phone] Health Maintenance Due Date Last Done Comments Hepatitis B series for 19+ (1 of 3 - 19+ 3-dose series) 2007 COVID-19 vaccine series (2023- season) 2024 07/10/2023, 06/29/2022, 08/03/2021, Additional history exists Pap test for age 21-65 09/25/2024 (Verified in Care Everywhere or Patient Record), 09/27/2013, 09/02/2009 Depression screening for age 12+ 08/08/2025 08/08/2024, 08/07/2024, 08/07/2024, Additional history exists BMI (ht and wt on same day) for age 18+ 02/04/2026 02/04/2025, 01/21/2025, 01/15/2025, Additional history exists Tetanus booster 04/20/2032 04/20/2022, [...] obesity type, unspecified whether serious comorbidity present (HC) Hypothyroidism (acquired) Gastroesophageal reflux disease without esophagitis URINE Preop 01/13/2025 8:42 AM CDT GLUCOSE METER Timed 01/13/2025 8:14 AM CDT SCAN-CARDIAC STRIP 01/13/2025 12 :00 AM CDT VITAMIN D 25 (DEFICIENCY) Routine 12/31/2024 11:48 AM CDT Class 3 severe obesity with body mass index (BMI) of 40.0 to 44.9 in adult, unspecified obesity type, unspecified whether serious comorbidity present (HC) Hypothyroidism (acquired) Gastroesophageal reflux disease without esophagitis PTH,INTACT Routine 12/31/2024 11:48 AM CDT Class 3 severe obesity with body mass index (BMI) of 40.0 to 44.9 in adult, unspecified obesity type, unspecified whether serious comorbidity present (HC) Hypothyroidism (acquired) Gastroesophageal reflux disease without esophagitis HEMOGLOBIN Routine 12/31/2024 11:48 AM CDT Preoperative examination AUTOMATION QA TESTER THIN PREP PAP SCREEN IMAGED Routine 09/27/2013 4:26 PM PIGGYBACK CLERK Screening for cervical cancer from Last 3 Months or Most Recently Relevant to Health Maintenance Results * HCHG TUBE PR1, HCHG STYLET PR1 (01/13/2025 10:25 AM CDT) Narrative Ada Bonilla CRNA - 01/13/2025 10:25 AM CDT Ada Bonilla CRNA 01/13/2025 10:26 AM Procedure: ETT Patient location [...] E Negative Negative 01/13/2025 8:59 AM CDT [facility] Urine URINE SPECIMEN / Unknown Non-Blood / Unknown 01/13/2025 8:42 AM CDT 01/13/2025 8:52 AM CDT us Willy Rogel MD URINE Final Result [facility] [address] [place] [address], * GLUCOSE METER (01/13/2025 8:14 AM CDT) GLUCOSE METER 81 65 - 100 mg/dL 01/14/2025 7:01 AM CDT [facility] Blood BLOOD SPECIMEN / Unknown 01/13/2025 8:14 AM CDT 01/14/2025 7:01 AM CDT Willy Rogel MD CHEMISTRY Final Result Performing Organization Address City/[facility]/ZIP Co de Phone Number [facility] [address] [place] [address], [place] * SCAN-CARDIAC STRIP (01/13/2025 12:00 AM CDT) Narrative 01/13/2025 12:00 AM CDT Ordered by an unspecified provider. Other Clinical Staff OTHER Final Resul t * VITAMIN D 25 (DEFICIENCY) (12/31/2024 11:48 AM CDT) VITAMIN D,25-OH,TOTAL,IA 32 30 - 100 ng/mL [facility] Comment: Vitamin D Status 25-OH Vitamin D: Deficiency: <20 ng/mL Insufficiency: 20 - 29 ng/mL Optimal: > or = 30 ng/mL For 25-OH Vitamin D testing on patients on D2-supplementation and patients for whom quantitation of D2 and D3 fractions is required, the QuestAssure[facility](TM) 25-OH VIT D, (D2,D3), LC/MS/MS is recommended: order code 59053 (patients >2yrs). See Note 1 Note 1 For additional information, please refer to http://education.[employer]/faq/BXN710 (This link is being provided for informational/ educational purposes only.) Blood BLOOD SPECIMEN / Unknown 12/31/2024 11:48 AM CDT 12/31/2024 11:48 AM CDT Willy Rogel MD SEND OUTS Final Result [facility] [address] [place] [address], [place] [phone] [facility] [address] [facility] [place] [address] * HEMOGLOBIN (12/31/2024 11:48 AM CDT) Pathologist [facility] HEMOGLOBIN 14.5 11.7 - 15.5 g/dL [facility] Blood BLOOD SPECIMEN / Unknown 12/31/2024 11:48 AM CDT 12/31/2024 11:48 AM CDT Diann MAI HEMATOLOGY Final Res ult [employer] [facility] [address] [place] [address], [facility] [address] [place] [address] * PTH,INTACT (12/31/2024 11:48 AM CDT) Pathologist [facility] PARATHYROID HORMONE, INTACT 33 16 - 77 pg/mL [facility] o[facility]imara [facility] Comment: Interpretive Guide Intact PTH Calcium ------- Normal Parathyroid Normal Normal Hypoparathyroidism Low or Low Normal Low Hyperparathyroidism Primary Normal or High High Secondary High Normal or Low Tertiary High High Non-Parathyroid Hypercalcemia Low or Low Normal High CALCIUM 10.0 8.6 - 10.2 mg/dL [facility] Blood BLOOD SPECIMEN / Unknown 12/31/2024 11:48 AM CDT 12/31/2024 11:48 AM CDT Willy Rogel MD SEND OUTS Final Result [employer] [facility] [address] [place] [address], [facility] [address] [place] [address] * AUTOMATION QA TESTER THIN PREP PAP SCREEN IMAGED (09/27/2013 4:26 PM PIGGYBACK CLERK) Pathologist [facility] CYTOLOGY CYTOPATHOLOGY REPORT [facility] Status: Final Status [id number] CLINICAL INFORMATION Last Date of LMP :08/07/2013 Last Pap Date :09/02/2009 Last Pap Result :NIL ABN [place]/Bx Past 5 YRS :None Hormone Usage :BCP/OCP/Patch/Rin g Menstrual Status :Regular Periods [place]/Bx done today :No Additional Information :None given HPV Request :HPV if ASCUS SPECIMEN SOURCE :Cervical/vaginal ThinPrep Vial, screening SPECIMEN ADEQUACY :Satisfactory for evaluation No endocervical component seen. INTERPRETATION/RES ULT Negative for intraepithelial lesion or malignancy (NIL) Cytology 1st Screener :dagoberto Signed by :tll This specimen was screened by the FDA [...] malignant lesions. COLLECTED:09/27/13 ACCESSIONED: 09/29/13 SIGNED: 10/08/13 [facility] PAP [place] CODE NIL [facility] Tissue specimen (specimen) (Cervical/Vagina l) 09/27/2013 4:26 PM PIGGYBACK CLERK 09/27/2013 4:21 PM PIGGYBACK CLERK us Rachel MAI PATHOLOGY/CYTOLOGY Elena bishop Result [facility] [place]NAL ZIP [address] [place] [address] from Last 3 Months or Most Recently Relevant to Health Maintenance Insurance [employer] Advance Directives * Full Code (Latest Code Status on File) Date Activated Date Inactivated Comments 01/13/2025 7:27 AM 01/14/2025 2:49 PM Question Answer Comments Code Status Discussion: Not Discussed Care Teams Motion Picture Critic Relationship Specialty Start Date End Date Diann Lopez PA [address] [place] [address] PCP - General Physician Junior Web Designer 07/10/23 Miya Contreras PA [address] [place] [address] Physician Junior Web Designer 07/16/24 Willy Rogel MD [address] [address] Consulting Physician Surgery - General 08/06/24 Abigail Garcia RN [address] [address] Double Cut Off Saw Operator Registered Nurse 08/06/24
[2025-03-07 12:36] VITALS: BP 125/85; PULSE 55; RESP 16; TEMP 36.5; O2SAT 99; BMI 35.7
--- NOTE | 2025-03-07 12:50 | CRLHL7_ITS ---
For Patients: As a result of the Century Cures Act, medical imaging exams and procedure reports are released immediately into your electronic medical record. You may view this report before your referring provider. If you have questions, please contact your health care provider. Indication: leg pain Technique: Real-time longitudinal and transverse sonographic rice-scale imaging with and without compression, as well as color, duplex, and spectral Doppler imaging before and after augmentation, was obtained of the deep system of the left lower extremity, including the common femoral, femoral, popliteal, posterior tibial, and peroneal veins. Comparison: None. Findings: Common femoral vein: No evidence of thrombus. Femoral vein: No evidence of thrombus. Popliteal vein: No evidence of thrombus. Calf veins: Patent. Impression: No ultrasound evidence of deep venous thrombosis. Dictated by Darion Stanley MD @ 03/07/2025 2:00:33 PM (Electronically Signed)
--- NOTE | 2025-03-07 12:57 | ED.GENADULT ---
HPI - General Adult General Chief complaint: Extremity Pain/Injury, Lower Stated complaint: Possible blood clot L calf Time Seen by Provider: 03/07/25 12:36 Source: patient Mode of arrival: ambulatory Limitations: no limitations History of Present Illness HPI narrative: Patient is a 34-year-old female, history of DVT and factor 5 Leiden mutation presenting today with left leg pain. Pain is been present for 3 days. She denies chest pain, shortness of breath or fevers. She has not been coughing. She states that she had a gastric bypass and he will for which she had 2 weeks of Lovenox afterwards. She denies any recent surgery since or any traveling. She denies trauma to the leg. Previous DVT occurred while . Related Data Home Medications ?Medication ?Instructions ?Recorded ?Confirmed escitalopram oxalate 10 mg tablet 20 mg PO DAILY 01/25/24 03/07/25 levothyroxine 100 mcg tablet 100 mcg PO QAM 01/29/25 03/07/25 omeprazole 20 mg capsule,delayed 20 mg PO DAILY 01/29/25 03/07/25 release Previous Rx's ?Medication ?Instructions ?Recorded albuterol sulfate 90 mcg/actuation 2 inh inhalation Q6-8H PRN 07/10/23 aerosol inhaler shortness of breath or wheezing, cough #6.7 grams Allergies Allergy/AdvReac Type Severity Reaction Status Date / Time Penicillins Allergy Intermediate Rash Verified 03/07/25 12:43 Review of Systems Status of ROS: Reports: 10 or more systems reviewed and unremarkable except as noted in History and below [facility] Medical History Ocular migraine ?G43.109 - Migraine with aura, not intractable, without status migrainosus (ICD-10) Heterozygous factor V Leiden mutation ?D68.51 - Activated protein C resistance (ICD-10) History of gestational hypertension ?Z87.59 - Personal history of other complications of , childbirth and the puerperium (ICD-10) PCOS (polycystic ovarian syndrome) ?E28.2 - Polycystic ovarian syndrome (ICD-10) History of DVT (deep vein thrombosis) (12/2021) ?Z86.718 - Personal history of other venous thrombosis and embolism (ICD-10) Obesity (BMI 30-39.9) ?E66.9 - Obesity, unspecified (ICD-10) Anxiety (03/09/23) ?F41.9 - Anxiety disorder, unspecified (ICD-10) Major depression (03/09/23) ?F32.9 - Major depressive disorder, single episode, unspecified (ICD-10) Surgical History History of cholecystectomy (03/08/18) ?Z90.49 - Acquired absence of other specified parts of digestive tract (ICD-10) History of tubal ligation (07/05/22) ?Z98.51 - Tubal ligation status (ICD-10) History of 3 sections ?Z98.891 - History of uterine scar from previous surgery (ICD-10) Family History Maternal Grandmother Uterine cancer, Onset Age: 45 Breast cancer Father Depression High blood pressure DVT (deep venous thrombosis) Mother Depression Migraines Sister PCOS (polycystic ovarian syndrome) Maternal Grandfather Coronary artery disease Myocardial infarction Social History 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 Alert and oriented. Answers questions appropriately. Mood and affect are appropriate. Thoughts are goal oriented and rational. No tangential or magical thinking noted. Patient speaks in full sentences without needing to catch her breath. Patient does not appear ill or toxic. HEENT: Normocephalic atraumatic. Pupils are equally round reactive to light. Extraocular muscles are intact. Conjunctivae are moist without any icterus noted. Moist mucous membranes. Cardiovascular: Heart is regular rate and rhythm S1 and S2 are present without any murmurs. Lungs: Clear to auscultation bilaterally no wheezes rhonchi or rales are appreciated. Patient takes deep breaths without any discomfort. Extremities: Bilateral lower extremities are without edema. Normal DP and PT pulses. She has some tenderness to palpation of the left calf. No significant swelling noted. No palpable cords. Skin: Well perfused without any obvious rashes. Const: Vital Signs, click to edit/add: Vital Signs - 24 hr 03/07/25 12:36 Temperature 97.7 F Pulse Rate [Pulse Oximeter] 55 L Respiratory Rate 16 Blood Pressure [Ri ght Upper Arm] 125/85 Pulse Oximetry 99 Oxygen Delivery Me thod Room Air Course Course ED Course: Given patient's history we did go ahead and proceed with a lower extremity ultrasound. This was unremarkable. Vital Signs Vital signs: Initial Vital Signs Temperature 97.7 F 03/07/25 12:36 Temperature Source Temporal Artery Scan 03/07/25 12:36 Pulse Rate 55 L 03/07/25 12:36 Respiratory Rate 16 03/07/25 12:36 Blood Pressure 125/85 03/07/25 12:36 Blood Pressure Mean 98 03/07/25 12:36 Blood Pressure Position Sitting 03/07/25 12:36 Pulse Oximetry 99 03/07/25 12:36 Oxygen Delivery Method Room Air 03/07/25 12:36 Vital Signs Temperature 97.7 F 03/07/25 12:36 Pulse Rate 55 L 03/07/25 12:36 Respiratory Rate 16 03/07/25 12:36 Blood Pressure 125/85 03/07/25 12:36 Pulse Oximetry 99 03/07/25 12:36 Oxygen Delivery Method Room Air 03/07/25 12:36 Temperature 97.7 F 03/07/25 12:36 Pulse Rate 55 L 03/07/25 12:36 Respiratory Rate 16 03/07/25 12:36 Blood Pressure 125/85 03/07/25 12:36 Pulse Oximetry 99 03/07/25 12:36 Oxygen Delivery Method Room Air 03/07/25 12:36 Medical Decision Making MDM Narrative Medical decision making narrative: 34-year-old female with calf pain, likely musculoskeletal in nature. No evidence of DVT seen on ultrasound today. No evidence of superficial venous thrombosis or thrombophlebitis. Follow-up as needed. Imaging Data Venous US: Attestation: I have reviewed the pertinent imaging results. Radiologist's impression: Technique: Real-time longitudinal and transverse sonographic rice-scale imaging with and without compression, as well as color, duplex, and spectral Doppler imaging before and after augmentation, was obtained of the deep system of the left lower extremity, including the common femoral, femoral, popliteal, posterior tibial, and peroneal veins. Comparison: None. Findings: Common femoral vein: No evidence of thrombus. Femoral vein: No evidence of thrombus. Popliteal vein: No evidence of thrombus. Calf veins: Patent. Impression: No ultrasound evidence of deep venous thrombosis. Discharge Plan Discharge Clinical Impression: Acute leg pain Patient Disposition: Home, Self-Care Condition: Stable Additional Instructions: No evidence of DVT seen on ultrasound today. Okay to use Tylenol or ibuprofen as needed for discomfort. Follow-up with primary care if symptoms are worsening. Prescriptions: No Action escitalopram oxalate 10 mg tablet 20 mg PO DAILY levothyroxine 100 mcg tablet 100 mcg PO QAM omeprazole 20 mg capsule,delayed release(DR/EC) 20 mg PO DAILY albuterol sulfate 90 mcg/actuation HFA aerosol inhaler 2 inh inhalation Q6-8H PRN (Reason: shortness of breath or wheezing, cough) Qty: 6.7 1RF Follow Up/Referrals: Diann Lopez PA-C [Primary Care Provider, Family Practice] Stand Alone Forms: Accumulate Info Instructions
== END 2025-03-07 14:19 | disposition home or self-care (01) ==
PROVIDERS: Emergency Provider Family Medicine; PCP Student in an Organized Health Care Education/Training Program
DX: M79.605 Pain in left leg (principal)
CPT/HCPCS: 93971; 99284